=== PATIENT | female | born 1960 | race Caucasian/White ===

== ENCOUNTER → 2021-09-07 14:24 | Outpatient (CLI) | payer OTHER | END | disposition home or self-care (01) | LOC: NUCLEAR 08-24 13:15 | PROVIDERS: ATTEND Obstetrics & Gynecology | DX: M81.8 Other osteoporosis without current pathological fracture (principal) ==

== ENCOUNTER 2024-09-18 09:50 | Outpatient (CLI) | payer OTHER | END 2024-09-18 09:51 | disposition home or self-care (01) | LOC: NUCLEAR 09:50 | PROVIDERS: ATTEND Internal Medicine Sports Medicine | DX: I82.441 Acute embolism and thrombosis of right tibial vein (principal); M71.21 Synovial cyst of popliteal space [Baker], right knee ==